=== PATIENT | female | born 1935 | race Caucasian/White ===

== ENCOUNTER 2018-11-10 15:50 | Emergency (ER) | payer MEDICARE, BC ==
[~2018-11-10] VITALS: Ht 154.9 cm; Wt 54.5 kg
[2018-11-10] MEDS ORDERED: ZESTRIL10 M1 PO (16:05)
[2018-11-10] MEDS ORDERED: XARELTO10 MG PO (16:05)
[2018-11-10] MEDS ORDERED: METOPROL TAR25 MG PO (16:06)
[2018-11-10] MEDS ORDERED: BETAPACE AF120 MG PO (16:06)
[2018-11-10] MEDS ORDERED: LIPITOR10 M1 PO (16:07)
[2018-11-10] MEDS ORDERED: ESCITALOPRAM OX10 MG PO (16:07)
[2018-11-10] MEDS ORDERED: HEMAX PO (16:07)
[2018-11-10] MEDS ORDERED: EXELON4.6 MG/24 ID (16:08)
[2018-11-10] MEDS ORDERED: BIOTIN5000 MC2 PO (16:09)
[2018-11-10 16:34] LABS: IMMATURE GRANULOCYTES 0.4 % (0.0-5.0); MEAN CELL VOLUME 98.3 fL CALC (80.0-100.0); MEAN CORPUSCULAR HGB 30.7 pG CALC (26.0-32.0); MEAN CORPUSCULAR HGB CONC 31.2 g/L CALC (32.0-36.0); NEUT# 3.72 thou/uL (2.00-7.15); RED BLOOD COUNT 2.38 mill/uL (4.20-5.60); RED CELL DISTRI WIDTH 12.1 % (11.5-15.5)
[2018-11-10 16:38] LABS: HEMATOCRIT 23.4 % (37.0-47.0); HEMOGLOBIN 7.3 g/dl (12.0-16.0)
[2018-11-10 16:50] LABS: INTERNATIONAL NORMALIZED RATIO 1.2 RATIO (0.7-1.3); PROTHROMBIN TIME 12.6 SECONDS (9.0-12.5)
[2018-11-10 16:52] LABS: ALBUMIN 2.7 g/dL (3.2-5.0); ALKALINE PHOSPHATASE 76 u/l (38-126); ANION GAP 11 (6-22 (CALC)); BILIRUBIN, TOTAL 0.2 mg/dL (0.0-1.4); BUN 18 mg/dL (8-23); BUN/CREATININE RATIO 24 (12-20 (CALC)); CARBON DIOXIDE 24 mmol/l (22-30); CHLORIDE 108 mmol/l (95-108); CREATININE 0.8 mg/dL (0.5-1.0); GFR > 60 ML/MIN (>=60 (CALC)); GFR FOR AFR.AMER. > 60 ML/MIN (>=60 (CALC)); POTASSIUM 4.3 mmol/l (3.5-5.1); SGOT/AST 20 u/l (9-36); SODIUM 139 mmol/l (137-146); TOTAL PROTEIN 5.2 g/dL (6.3-8.2)
[2018-11-10 18:43] VITALS: BP 118/58
== END 2018-11-10 18:44 | disposition other institution (70) ==
LOC: ED 15:50
PROVIDERS: Emergency Medicine
DX: K92.2 Gastrointestinal hemorrhage, unspecified (principal); D64.9 Anemia, unspecified; I10 Essential (primary) hypertension; I48.91 Unspecified atrial fibrillation